=== PATIENT | female | born 2000 | race Caucasian/White ===

== ENCOUNTER 2023-01-26 08:19 | Outpatient (CLI) | payer MEDICAID, SELFPAY | END 2023-01-26 08:20 | disposition home or self-care (01) | PROVIDERS: PCP Internal Medicine; Visit Provider Internal Medicine | DX: R53.83 Other fatigue (principal); F41.9 Anxiety disorder, unspecified | CPT/HCPCS: 80053; 84443 ==

== ENCOUNTER 2024-02-26 10:45 | Outpatient (CLI) | payer MEDICAID, SELFPAY ==
--- NOTE | 2024-02-26 11:00 | CRLHL7_ITS ---
For Patients: As a result of the Century Cures Act, medical imaging exams and procedure reports are released immediately into your electronic medical record. You may view this report before your referring provider. If you have questions, please contact your health care provider. INDICATION: Facial injury up of the right eyebrow. COMPARISON: None available at time of interpretation. TECHNIQUE: Noncontrast CT of the facial bones. FINDINGS: No facial fractures. Specifically, the bony orbits, nasal bones, zygomatic arches are intact. No fractures of the maxilla visualized mandible. Normal orbits bilaterally. No soft tissue swelling in the periorbital soft tissues. No intraconal extraconal mass or lesion. Globes are intact. Minimal mucosal thickening in the bilateral maxillary sinuses. Mucosal thickening and partial opacification of the ostiomeatal complexes. Nasal septal deviation to the right measured approximately 3 mm from midline. Slight upward tilt of the left aspect of the hard palate. Nasal cavity is clear. Frontal sinuses are clear. Mild mucosal thickening within the ethmoid air cells. Mild mucosal thickening of the sphenoid sinuses with opacification of the sphenoid ostia. Mastoid air cells are clear. IMPRESSION: 1. No facial fractures 2. Normal orbits bilaterally. 3. Mild sinus disease. Nasal septal deviation to the right. Please note that all CT scans at this facility use dose modulation, iterative reconstruction, and/or weight-based dosing when appropriate to reduce radiation dose to as low as reasonably achievable. Dictated by Antonino Mooney MD @ 02/29/2024 12:13:59 PM (Electronically Signed)
== END 2024-02-26 10:46 | disposition home or self-care (01) ==
PROVIDERS: PCP Internal Medicine; Visit Provider Internal Medicine
DX: S09.93XA Unspecified injury of face, initial encounter (principal); J34.2 Deviated nasal septum
CPT/HCPCS: 70486